=== PATIENT | male | born 1945 | race Hispanic/Latino ===

== ENCOUNTER → 2019-01-03 | Outpatient (CLI) | payer OTHER ==
[~2019-01-03] MED LIST: ALLO100T PO; AMLO10TA7 PO; CARV6.25 PO; PIOG15TA66 PO
== END | disposition home or self-care (01) ==
LOC: SHCH 14:50
PROVIDERS: ATTEND Internal Medicine Cardiovascular Disease
DX: I25.10 Atherosclerotic heart disease of native coronary artery without angina pectoris (principal)
CPT/HCPCS: 93306

== ENCOUNTER 2019-01-30 06:43 | Inpatient (IN) | payer OTHER ==
[2019-01-24 10:57] LABS: BASOPHILS % (AUTO) 0.4 % (0.0-5.0); EOSINOPHILS % (AUTO) 0.7 % (0.0-8.0); HEMATOCRIT 44.3 % (42-54); LYMPHOCYTES % (AUTO) 13.3 % (21.0-51.0); MEAN CORPUSCULAR HEMOGLOBIN 31.5 pg (27.0-33.0); MEAN CORPUSCULAR HGB CONC 33.8 g/dL (32.0-36.0); MEAN CORPUSCULAR VOLUME 93.1 fL (79-99); MONOCYTES % (AUTO) 7.9 % (3.0-13.0); NEUTROPHILS % (AUTO) 77.7 % (40.0-77.0); PLATELET COUNT (AUTO) 197 K/uL (130-400); RED BLOOD CELL COUNT(AUTO) 4.76 MIL/uL (4.50-6.20); RED CELL DISTRIBUTION WIDTH 15.6 % (11.0-15.5); WHITE BLOOD COUNT (AUTO) 8.1 K/uL (4.8-10.8)
[2019-01-24 10:58] LABS: CREATININE 2.9 mg/dL (0.5-1.5); POTASSIUM 4.2 mmol/L (3.5-5.1)
[2019-01-24 11:06] VITALS: BP 137/75
[2019-01-24 11:31] LABS: INR 1.5 (0.85-1.15); PARTIAL THROMBOPLASTIN TIME 36.4 SEC (26.3-35.5); PROTHROMBIN TIME 15.6 SEC (9.6-11.6)
--- NOTE | 2019-01-28 11:20 | NUR ---
ABNORMAL LAB / H&P: CALLED DR. BUCKLEY'S OFFICE AND SPOKE TO [place] REGARDING NO H&P , WILL FAX TO [phone]. ALSO NOTIFIED CLIFTON OF ABNORMAL PT, INR, PTT, BUN AND CREATINE, FAXED TO OFFICE OF DR. BUCKLEY. CLIFTON TO SHOW DR. BUCKLEY LAB RESULTS AND WILL FAX ORDERS IF GIVEN.
--- NOTE | 2019-01-28 11:31 | NUR ---
CONSULT: DR. SOMMERS VIEWED PT 15.6, INR 1.50, PTT 36.4, INSTRUCTED TO NOTIFY DR. BUCKLEY. MADE AWARE OF LAB ALREADY FAXED TO OFFICE AND AWAITING ORDERS. VIEWED BUN 69 AND CREATINE OF 2.9, ORDERED TO OBTAIN LAST LAB DONE TO VIEW. DR. CAMPOS'S OFFICE CALLED AND WILL BE FAXED TO [phone].
--- NOTE | 2019-01-28 11:42 | NUR ---
CONSULT: MASOUD DYER CRNA MADE AWARE OF ORDERS FROM DR. SOMMERS ON ABNORMAL BUN AND CREAT. MADE AWARE OF BUN 69 AND CREATINE 2.9 FROM 01/24/19. MADE AWARE OF BUN 66 AND CREATNE 2.3 FROM 12/09/18. MASOUD DYER CRNA MADE AWARE THAT PATIENT HAS BEEN CLEARED BY BLOCK INSPECTOR AND ELECTRICAL INSPECTOR. ALSO THAT PATIENT HAS BEEN HAVING INCREASING CREATINE / GFR, BEING FOLLOWED BY NEPHROLOGY PER H&P OF DR. GUS CAMPOS, NO ORDERS GIVEN, OK TO PROCEED WITH SURGERY.
[~2019-01-30] VITALS: Ht 172.7 cm; Wt 106.9 kg
[2019-01-30] VITALS (21 sets, daily range): BP systolic 107–157; BP diastolic 55–96
[~2019-01-30 06:43] MED LIST changes: -ALLO100T PO; -AMLO10TA7 PO; +ATOR40TA71 PO; +RIVA15TA PO; +VITA1CAP85 PO; +[UNRECOGNIZED DRUG - OTHER] PO
[2019-01-30] MEDS ORDERED: SODIUM CHLORIDE 0.9% 1000ML 1,000 ML IV ONE (07:24)
[2019-01-30] MEDS ORDERED: PROPOFOL 10 MG/ML 20ML VIAL IV ONE (07:29)
[2019-01-30] MEDS ORDERED: ROCURONIUM 10MG/1ML SYR 10 MG/ML ML ONE ×2 (07:29→09:17)
[2019-01-30] MEDS ORDERED: ONDANSETRON HCL 4 MG/2 ML VIAL ONE (07:29)
[2019-01-30] MEDS ORDERED: LIDOCAINE PF 2% 5ML ABBOJECT ONE (07:29)
[2019-01-30] MEDS ORDERED: MIDAZOLAM HCL 1 MG/ML 2ML VIAL ONE (07:30)
[2019-01-30] MEDS ORDERED: FENTANYL CITRATE PF 50 MCG/1 ML 2ML VIAL ONE (07:30)
--- NOTE | 2019-01-30 07:30 | NUR ---
PREP nasal swabbed with betadine swabs bilateral nares right knee clipped and wiped with Binh wipes by Kenneth Hollis
--- NOTE | 2019-01-30 07:30 | NUR ---
ABNORMAL LABS INR 1.5 Dr Gayle aware no new orders
[2019-01-30] MEDS ORDERED: ROPIVACAINE 0.5% 5MG/ML 30ML IJ ONE (07:34)
[2019-01-30] MEDS: CEFAZOLIN SODIUM 1 GM VIAL ONE ×2 (08:01→09:00)
[2019-01-30] MEDS ORDERED: VANCOMYCIN HCL 1 GM VIAL ONE ×3 (09:13→10:26)
[2019-01-30] MEDS ORDERED: TRANEXAMIC ACID 1000MG/10ML IV ONE (09:27)
[2019-01-30] MEDS ORDERED: GLYCOPYRROLATE 1 MG/5 ML SYRINGE ONE (10:58)
[2019-01-30] MEDS ORDERED: NEOSTIGMINE 5MG/5ML SYR IV ONE (10:59)
[2019-01-30] MEDS ORDERED: EPHEDRINE SULFATE 50 MG/ML AMPULE ONE (11:11)
[2019-01-30] MEDS ORDERED: FERROUS FUMARATE 324 MG TABLET PO PRN (11:15)
[2019-01-30] MEDS ORDERED: ONDANSETRON HCL 4 MG/2 ML VIAL IVP PRN (11:15)
[2019-01-30] MEDS: ACETAMINOPHEN EXTRA STRENGTH 500 MG TABLET PO SCH ×2 (11:15→20:26)
[2019-01-30] MEDS: FAMOTIDINE 20MG TAB 20 MG TAB PO SCH (11:25)
[2019-01-30] MEDS ORDERED: MEPERIDINE-PF 25 MG/ML SYG ONE ×2 (11:32→11:41)
--- NOTE | 2019-01-30 12:28 | NUR ---
POST SURGERY PATIENT RECEIVED FROM PACU VIA HOSPITAL BED. HE APPEARS VERY SLEEPY, AROUSED BY RAISING MY VOICE. HE IS ON OXYGEN AT 2L/MIN VIA NASAL CANNULA. IV IS PATENT INFUSING FLUIDS WITH NO REDNESS OR SWELLING NOTED TO SITE. BOTH HAVE BEEN ORIENTED TO ROOM AND USE OF CALL LIGHT. BED IS IN LOWEST POSITION AND LOCKED. POST OP V/S HAVE BEEN INITIATED. DRESSING TO RIGHT KNEE IS DRY AND INTACT. WILL CONTINUE TO MONITOR.
--- NOTE | 2019-01-30 14:47 | NUR ---
1435-PATIENT PREFERS TO BE SEEN TOMORROW FOR PHYSICAL THERAPY EVALUATION.PATIENT IS VERY DROWSY.NOTIFIED DENIZ HOLLOWAY REGARDING PATIENT'S PREFERENCES. Addendum: 01/30/19 at 1450 by CORINNA STEIN, PT PT Amended: Links added.
[2019-01-30] MEDS: OXYCODONE HCL 5 MG TAB PO PRN ×2 (15:42→20:31)
[2019-01-30] MEDS: SODIUM CHLORIDE 0.9% 1000ML 1,000 ML IV SCH ×2 (16:19→21:01)
[2019-01-30] MEDS: CEFAZOLIN 3GM /D5W 100ML 100 ML IV SCH (17:03)
[2019-01-30] MEDS: PREGABALIN 25 MG CAP PO SCH (20:25)
[2019-01-30] MEDS: PIOGLITAZONE HCL 15 MG TAB PO SCH (20:25)
[2019-01-30] MEDS: HYDROCHLOROTHIAZIDE 25 MG TABLET PO SCH (20:27)
[2019-01-30] MEDS: CARVEDILOL 6.25 MG TABLET PO SCH (20:27)
[2019-01-30] MEDS: RIVAROXABAN 15 MG TABLET PO SCH (20:31)
[2019-01-31] MEDS: CEFAZOLIN 3GM /D5W 100ML 100 ML IV SCH (00:08)
[2019-01-31] MEDS: SODIUM CHLORIDE 0.9% 1000ML 1,000 ML IV SCH (03:33)
[2019-01-31] MEDS: ACETAMINOPHEN EXTRA STRENGTH 500 MG TABLET PO SCH ×3 (03:38→20:37)
[2019-01-31 04:00] VITALS: BP 136/87
[2019-01-31 04:06] LABS: HEMATOCRIT 36.4 % (42-54); MEAN CORPUSCULAR HEMOGLOBIN 32.6 pg (27.0-33.0); MEAN CORPUSCULAR HGB CONC 35.2 g/dL (32.0-36.0); MEAN CORPUSCULAR VOLUME 92.5 fL (79-99); PLATELET COUNT (AUTO) 179 K/uL (130-400); RED BLOOD CELL COUNT(AUTO) 3.94 MIL/uL (4.50-6.20); RED CELL DISTRIBUTION WIDTH 15.4 % (11.0-15.5); WHITE BLOOD COUNT (AUTO) 10.9 K/uL (4.8-10.8)
[2019-01-31 04:14] LABS: CREATININE 2.8 mg/dL (0.5-1.5); POTASSIUM 4.2 mmol/L (3.5-5.1)
[2019-01-31 08:00] VITALS: BP 131/82
[2019-01-31] MEDS: OXYCODONE HCL 5 MG TAB PO PRN ×3 (08:31→17:26)
[2019-01-31] MEDS: TAMSULOSIN HCL 0.4 MG CAP.ER.24H PO SCH (08:31)
[2019-01-31] MEDS: RIVAROXABAN 15 MG TABLET PO SCH (08:31)
[2019-01-31] MEDS: CALCIUM CARBONATE 500 MG TABLET PO PRN ×2 (08:31→23:48)
[2019-01-31] MEDS: FAMOTIDINE 20MG TAB 20 MG TAB PO SCH (08:31)
[2019-01-31] MEDS: PREGABALIN 25 MG CAP PO SCH ×2 (08:31→20:36)
[2019-01-31] MEDS: HYDROCHLOROTHIAZIDE 25 MG TABLET PO SCH (08:31)
[2019-01-31] MEDS: POLYETHYLENE GLYCOL 3350 17 GM POWD.PACK PO SCH (08:32)
[2019-01-31] MEDS: CARVEDILOL 6.25 MG TABLET PO SCH (08:32)
[2019-01-31 11:00] VITALS: BP 115/64
[2019-01-31] MEDS ORDERED: DEXTROSE 50%-WATER 50 ML DISP.SYRIN IV PRN (12:30)
[2019-01-31] MEDS ORDERED: CARVEDILOL 12.5 MG TABLET PO PRN (12:30)
[2019-01-31] MEDS ORDERED: GLUCAGON 1MG KIT 1 MG ML IM PRN (12:30)
[2019-01-31 16:00] VITALS: BP 108/71
--- NOTE | 2019-01-31 16:03 | NUR ---
CM Note: Approved and has acceptance for [facility] Spoke to Laevrn w/[facility], stated Dr Gayle's office set up the HH for PT and Skilled Nurse visit. Pt has approval and acceptance. Requested to have primary nurse give report once pt ready to DC. Primary nurse aware. CM to cont to follow up.
[2019-01-31] MEDS: INSULIN HUMULIN R 100 UNIT/ML 3ML SQ SCH ×2 (16:30→20:33)
[2019-01-31 19:52] VITALS: BP 120/72
[2019-01-31] MEDS: PIOGLITAZONE HCL 15 MG TAB PO SCH (20:36)
[2019-01-31 23:49] VITALS: BP 102/60
[2019-02-01] MEDS: OXYCODONE HCL 5 MG TAB PO PRN ×2 (01:24→07:47)
[2019-02-01 04:00] VITALS: BP 127/84
[2019-02-01] MEDS: ACETAMINOPHEN EXTRA STRENGTH 500 MG TABLET PO SCH ×2 (04:01→11:51)
[2019-02-01] MEDS: INSULIN HUMULIN R 100 UNIT/ML 3ML SQ SCH (06:51)
[2019-02-01] MEDS: FAMOTIDINE 20MG TAB 20 MG TAB PO SCH (07:46)
[2019-02-01] MEDS: TAMSULOSIN HCL 0.4 MG CAP.ER.24H PO SCH (07:46)
[2019-02-01] MEDS: PREGABALIN 25 MG CAP PO SCH (07:46)
[2019-02-01] MEDS: POLYETHYLENE GLYCOL 3350 17 GM POWD.PACK PO SCH (07:46)
[2019-02-01 07:58] VITALS: BP 98/63
[2019-02-01] MEDS: RIVAROXABAN 15 MG TABLET PO SCH (09:45)
--- NOTE | 2019-02-01 11:51 | NUR ---
DISCHARGE DISCHARGE TEACHING DONE WITH PATIENT WITH FAMILY USING TEACHBACK METHOD, VERBALIZED UNDERSTANDING. NO NOTED SOB OR DISTRESS. DRESSING TO RIGHT KNEE CHANGED, INCISION IS DRY AND INTACT. DRESSING TEACHING DONE WITH PATIENT AND FAMILY, VERBALIZED UNDERSTANDING. IV REMOVED, CATH TIP INTACT. REPORT CALLED TO HOME HEALTH. PENDING TO BE TRANSFERRED OUT VIA PRIVATE VEHICLE.
[2019-02-02] MEDS ORDERED: BISACODYL 10 MG SUPP.RECT RC PRN (11:15)
== END 2019-02-01 12:15 | disposition home health service (06) | DRG 470 ==
LOC: DAH 06:43 → DAHIP 06:44 → DAH 06:44 → OBSVTOIN 06:44 → EDSTATUS 10:30 → 4AH 12:36
PROVIDERS: ADMIT Orthopaedic Surgery; ATTEND Orthopaedic Surgery
PROC: 0SRC0J9 Replacement of Right Knee Joint with Synthetic Substitute, Cemented, Open Approach (ICD-10-PCS; principal; 2019-01-30 09:18)
DX: M17.11 Unilateral primary osteoarthritis, right knee (principal); M21.061 Valgus deformity, not elsewhere classified, right knee; E11.9 Type 2 diabetes mellitus without complications; I48.91 Unspecified atrial fibrillation; M65.9 Synovitis and tenosynovitis, unspecified; I10 Essential (primary) hypertension; E78.00 Pure hypercholesterolemia, unspecified; M24.561 Contracture, right knee; Z96.652 Presence of left artificial knee joint; E66.01 Morbid (severe) obesity due to excess calories; Z68.35 Body mass index [BMI] 35.0-35.9, adult; Z83.3 Family history of diabetes mellitus; Z82.5 Family history of asthma and other chronic lower respiratory diseases; Z82.49 Family history of ischemic heart disease and other diseases of the circulatory system; Z82.3 Family history of stroke; Z82.0 Family history of epilepsy and other diseases of the nervous system; I95.81 Postprocedural hypotension
CPT/HCPCS: 36415; 80048; 82948; 85025; 85027; 85610; 85730; 86850; 86900; 86901; 87070; 87076; 87205; 87641; 88304; 88311; 97039; A4218; C1713; G0378; J0690; J2001; J2175; J2250; J2405; J2704; J2710; J2795; J3010; J3370; J3490; J7030

== ENCOUNTER → 2020-02-16 | Outpatient (CLI) | payer OTHER | END | disposition home or self-care (01) | LOC: SHCH 11:02 | PROVIDERS: ATTEND Internal Medicine Cardiovascular Disease | DX: I07.1 Rheumatic tricuspid insufficiency (principal); I25.119 Atherosclerotic heart disease of native coronary artery with unspecified angina pectoris | CPT/HCPCS: 93306; 93356 ==

== ENCOUNTER → 2020-02-19 | Outpatient (CLI) | payer OTHER ==
[~2020-02-19] MED LIST changes: +REGADENOSON 0.4 MG/5 ML PF SYG IVP SCH
== END | disposition home or self-care (01) ==
LOC: SHCH 07:55
PROVIDERS: ATTEND Internal Medicine Cardiovascular Disease
DX: I25.110 Atherosclerotic heart disease of native coronary artery with unstable angina pectoris (principal)
CPT/HCPCS: 78452; 93017; 96374; A9500 ×2; J2785

== ENCOUNTER 2022-04-05 07:19 | Inpatient (IN) | payer OTHER ==
[~2022-04-05] VITALS: Ht 162.6 cm; Wt 93.4 kg
[~2022-04-05 07:19] MED LIST changes: -REGADENOSON 0.4 MG/5 ML PF SYG IVP SCH
[2022-04-05 07:42] LABS: BASOPHILS % (AUTO) 0.6 % (0.0-5.0); HEMATOCRIT 34.9 % (42-54); LYMPHOCYTES % (AUTO) 19.4 % (21.0-51.0); MEAN CORPUSCULAR HEMOGLOBIN 29.5 pg (27.0-33.0); MEAN CORPUSCULAR HGB CONC 33.5 g/dL (32.0-36.0); MEAN CORPUSCULAR VOLUME 88.1 fL (79-99); MONOCYTES % (AUTO) 11.1 % (3.0-13.0); NEUTROPHILS % (AUTO) 66.7 % (40.0-77.0); PLATELET COUNT (AUTO) 144 K/uL (130-400); RED BLOOD CELL COUNT(AUTO) 3.96 MIL/uL (4.50-6.20); RED CELL DISTRIBUTION WIDTH 15.9 % (11.0-15.5); WHITE BLOOD COUNT (AUTO) 5.4 K/uL (4.8-10.8)
[2022-04-05 08:03] LABS: INR 1.44 (0.85-1.15); PROTHROMBIN TIME 15.4 SEC (9.6-11.6)
[2022-04-05 08:06] LABS: ALBUMIN 2.6 g/dL (3.5-5.0); BILIRUBIN,TOTAL 0.7 mg/dL (0.2-1.0); CREATININE 4.3 mg/dL (0.5-1.5); POTASSIUM 3.9 mmol/L (3.5-5.1); TOTAL PROTEIN, SERUM 6.5 g/dL (6.0-8.3)
[2022-04-05 09:08] LABS: APPEARANCE,URINE CLEAR (CLEAR); BILIRUBIN,URINE NEGATIVE (NEGATIVE); COLOR,URINE YELLOW (YELLOW); GLUCOSE, URINE (UA) NEGATIVE (NEGATIVE); KETONES,URINE NEGATIVE (NEGATIVE); LEUKOCYTE ESTERASE ,URINE NEGATIVE (NEGATIVE); NITRATE,URINE NEGATIVE (NEGATIVE); OCCULT BLOOD,URINE TRACE-INTACT (NEGATIVE); PH,URINE 5.5 (5.0-8.0); PROTEIN,URINE >=300 mg/dL (NEGATIVE); UROBILINOGEN,URINE 0.2 mg/dL (0.2-1.0)
[2022-04-05] MEDS ORDERED: ONDANSETRON 4MG INJ IVP PRN (09:30)
[2022-04-05] MEDS ORDERED: KAYEXALATE 15GM/60ML PO PRN (09:30)
[2022-04-05] MEDS ORDERED: LACTULOSE 20 GM/30 ML UDCUP PO PRN (09:30)
[2022-04-05] MEDS ORDERED: DOCUSATE SODIUM 100 MG CAP PO PRN (09:30)
[2022-04-05] MEDS ORDERED: ACETAMINOPHEN 650 MG SUPPOSITORY RC PRN (09:30)
[2022-04-05] MEDS ORDERED: ACETAMINOPHEN 325 MG TAB PO PRN (09:30)
[2022-04-05 09:56] LABS: BACTERIA,URINE Rare /HPF (None Seen); MUCUS,URINE Few LPF (None Seen); RBC,URINE 0-1 /HPF (0-1); SQUAMOUS EPITHELIAL CELL,UR Rare /HPF (0-2); WBC,URINE 0-1 /HPF (0-1)
[2022-04-05] MEDS ORDERED: 0.9%NACL 1000ML 1,000 ML IV SCH (10:00)
[2022-04-05] MEDS: CLONIDINE HCL 0.1 MG TABLET PO PRN (10:00)
[2022-04-05] MEDS: INSULIN HUMULIN R 100 UNIT/ML 3ML SQ SCH ×3 (11:30→21:00)
[2022-04-05 11:35] LABS: PROTEIN,URINE RANDOM 148.9 mg/dL (0-11.9)
[2022-04-05] MEDS: METOCLOPRAMIDE 5 MG TABLET PO SCH ×3 (12:10→21:00)
[2022-04-05] MEDS ORDERED: AMLODIPINE 5 MG TAB ONE (12:12)
[2022-04-05] MEDS ORDERED: CARV25TA PO (12:33)
[2022-04-05] MEDS ORDERED: APIX5TAB PO (12:33)
[2022-04-05] MEDS ORDERED: FOLATE PO (12:33)
[2022-04-05] MEDS ORDERED: VIT B12 PO (12:33)
[2022-04-05] MEDS ORDERED: VIT D3 PO (12:33)
[2022-04-05] MEDS ORDERED: CARVEDILOL 12.5 MG TABLET PO SCH (14:30)
[2022-04-05] MEDS ORDERED: CLONIDINE 0.1 MG/ 24 HR PATCH TD SCH (14:30)
[2022-04-05] MEDS: FOLIC ACID 1 MG TABLET PO SCH (14:58)
[2022-04-05] MEDS: CYANOCOBALAMIN (VITAMIN B-12) 1,000 MCG TABLET PO SCH (14:59)
[2022-04-05] MEDS: CARVEDILOL 25 MG TABLET PO SCH (21:00)
[2022-04-05] MEDS: ATORVASTATIN 40 MG TABLET PO SCH (21:00)
[2022-04-05 22:30] VITALS: BP 158/90
[2022-04-06] VITALS (7 sets, daily range): BP systolic 136–184; BP diastolic 85–102
[2022-04-06 04:16] LABS: BASOPHILS % (AUTO) 0.7 % (0.0-5.0); EOSINOPHILS % (AUTO) 2.8 % (0.0-8.0); HEMATOCRIT 31.3 % (42-54); LYMPHOCYTES % (AUTO) 23.5 % (21.0-51.0); MEAN CORPUSCULAR HEMOGLOBIN 29.9 pg (27.0-33.0); MEAN CORPUSCULAR HGB CONC 33.9 g/dL (32.0-36.0); MEAN CORPUSCULAR VOLUME 88.2 fL (79-99); MONOCYTES % (AUTO) 12.4 % (3.0-13.0); NEUTROPHILS % (AUTO) 60.2 % (40.0-77.0); PLATELET COUNT (AUTO) 126 K/uL (130-400); RED BLOOD CELL COUNT(AUTO) 3.55 MIL/uL (4.50-6.20); RED CELL DISTRIBUTION WIDTH 15.8 % (11.0-15.5); WHITE BLOOD COUNT (AUTO) 4.6 K/uL (4.8-10.8)
[2022-04-06 04:21] LABS: % IRON SATURATION 27.6 % (30-44); CREATININE 4.1 mg/dL (0.5-1.5); PHOSPHORUS 4.4 mg/dL (2.5-4.9); POTASSIUM 3.9 mmol/L (3.5-5.1)
[2022-04-06 04:40] LABS: B-TYPE NATRIURETIC PEPTIDE 557 pg/mL (0-100)
[2022-04-06] MEDS: METOCLOPRAMIDE 5 MG TABLET PO SCH ×4 (07:27→20:41)
[2022-04-06] MEDS: INSULIN HUMULIN R 100 UNIT/ML 3ML SQ SCH ×4 (07:28→21:00)
[2022-04-06] MEDS: AMLODIPINE 5 MG TAB PO SCH (08:45)
[2022-04-06] MEDS: CYANOCOBALAMIN (VITAMIN B-12) 1,000 MCG TABLET PO SCH (08:45)
[2022-04-06] MEDS: FOLIC ACID 1 MG TABLET PO SCH (08:45)
[2022-04-06] MEDS: PANTOPRAZOLE 40 MG TAB DR PO SCH (08:45)
[2022-04-06] MEDS: CARVEDILOL 25 MG TABLET PO SCH ×2 (08:46→20:39)
[2022-04-06] MEDS: ENOXAPARIN SODIUM 30 MG/0.3 ML SQ SCH (08:53)
[2022-04-06] MEDS: VIT D3 125 MCG PO SCH (09:00)
[2022-04-06] MEDS ORDERED: HYDRALAZINE 25MG TABLET ONE (12:14)
[2022-04-06] MEDS ORDERED: HYDRALAZINE 25MG TABLET PO PRN (12:30)
[2022-04-06] MEDS: ATORVASTATIN 40 MG TABLET PO SCH (20:27)
[2022-04-06] MEDS: HYDRALAZINE HCL 10 MG TABLET PO SCH (20:28)
[2022-04-07 00:25] VITALS: BP 167/88
[2022-04-07] MEDS: CLONIDINE HCL 0.1 MG TABLET PO PRN (00:43)
[2022-04-07 04:41] VITALS: BP 169/90
[2022-04-07 05:28] LABS: BASOPHILS % (AUTO) 0.4 % (0.0-5.0); EOSINOPHILS % (AUTO) 2.7 % (0.0-8.0); HEMATOCRIT 32.9 % (42-54); LYMPHOCYTES % (AUTO) 20.9 % (21.0-51.0); MEAN CORPUSCULAR HGB CONC 32.5 g/dL (32.0-36.0); MEAN CORPUSCULAR VOLUME 89.2 fL (79-99); MONOCYTES % (AUTO) 12.5 % (3.0-13.0); NEUTROPHILS % (AUTO) 63.3 % (40.0-77.0); PLATELET COUNT (AUTO) 135 K/uL (130-400); RED BLOOD CELL COUNT(AUTO) 3.69 MIL/uL (4.50-6.20); RED CELL DISTRIBUTION WIDTH 15.9 % (11.0-15.5); WHITE BLOOD COUNT (AUTO) 5.2 K/uL (4.8-10.8)
[2022-04-07 05:43] LABS: ALBUMIN 2.2 g/dL (3.5-5.0); BILIRUBIN,TOTAL 0.7 mg/dL (0.2-1.0); PHOSPHORUS 4.2 mg/dL (2.5-4.9); POTASSIUM 3.8 mmol/L (3.5-5.1); TOTAL PROTEIN, SERUM 5.5 g/dL (6.0-8.3)
[2022-04-07] MEDS: METOCLOPRAMIDE 5 MG TABLET PO SCH (05:45)
[2022-04-07 06:00] LABS: INR 1.43 (0.85-1.15); PROTHROMBIN TIME 15.3 SEC (9.6-11.6)
[2022-04-07 06:01] LABS: PARTIAL THROMBOPLASTIN TIME 34.7 SEC (26.3-35.5)
[2022-04-07] MEDS: INSULIN HUMULIN R 100 UNIT/ML 3ML SQ SCH (06:57)
[2022-04-07 08:00] VITALS: BP 118/56
[2022-04-07] MEDS: VIT D3 125 MCG PO SCH (09:00)
[2022-04-07] MEDS: ENOXAPARIN SODIUM 30 MG/0.3 ML SQ SCH (09:00)
[2022-04-07] MEDS: HYDRALAZINE HCL 10 MG TABLET PO SCH (09:27)
[2022-04-07] MEDS: FOLIC ACID 1 MG TABLET PO SCH (09:27)
[2022-04-07] MEDS: AMLODIPINE 5 MG TAB PO SCH (09:27)
[2022-04-07] MEDS: PANTOPRAZOLE 40 MG TAB DR PO SCH (09:27)
[2022-04-07] MEDS: CYANOCOBALAMIN (VITAMIN B-12) 1,000 MCG TABLET PO SCH (09:27)
[2022-04-07 09:28] VITALS: BP 118/56
[2022-04-07] MEDS: CARVEDILOL 25 MG TABLET PO SCH (09:28)
[2022-04-07] MEDS ORDERED: PANT40TA PO (09:48)
[2022-04-07] MEDS ORDERED: AMLO5TAB4 PO (09:48)
[2022-04-07] MEDS ORDERED: METO5TAB2 PO (09:48)
[2022-04-07] MEDS ORDERED: HYDR-3420 PO (09:48)
== END 2022-04-07 10:30 | disposition home or self-care (01) | DRG 684 ==
LOC: EDH 07:19 → EDHIP 09:07 → 4BH 19:39
PROVIDERS: ADMIT Internal Medicine Critical Care Medicine; ATTEND Internal Medicine Critical Care Medicine
DX: N17.9 Acute kidney failure, unspecified (principal); N18.9 Chronic kidney disease, unspecified; I12.9 Hypertensive chronic kidney disease with stage 1 through stage 4 chronic kidney disease, or unspecified chronic kidney disease; E78.5 Hyperlipidemia, unspecified; E11.22 Type 2 diabetes mellitus with diabetic chronic kidney disease; I25.10 Atherosclerotic heart disease of native coronary artery without angina pectoris; Z96.653 Presence of artificial knee joint, bilateral; D64.9 Anemia, unspecified; Z20.822 Contact with and (suspected) exposure to COVID-19; E78.00 Pure hypercholesterolemia, unspecified; E66.9 Obesity, unspecified; Z68.35 Body mass index [BMI] 35.0-35.9, adult
CPT/HCPCS: 36415; 71045; 76770; 80048; 80053; 81001; 82570; 82948; 83540; 83550; 83735; 83880; 84100; 84156; 84165; 85025; 85610; 85730; 86160; 86255; 87635; 93306; 93356; 93975; 99291; C9803; G0378; J1650; J7030

== ENCOUNTER → 2022-04-20 | Outpatient (CLI) | payer OTHER ==
[~2022-04-20] MED LIST changes: +AMLO5TAB4 PO; +APIX5TAB PO; +CARV25TA PO; -CARV6.25 PO; +FOLATE PO; +HYDR-3420 PO; +METO5TAB2 PO; +PANT40TA PO; -RIVA15TA PO; +VIT B12 PO; +VIT D3 PO; -VITA1CAP85 PO; -[UNRECOGNIZED DRUG - OTHER] PO
== END | disposition home or self-care (01) ==
LOC: RAH 13:21
PROVIDERS: ATTEND Internal Medicine
DX: E04.2 Nontoxic multinodular goiter (principal)
CPT/HCPCS: 76536

== ENCOUNTER → 2022-05-31 | Outpatient (CLI) | payer OTHER ==
[~2022-05-31] MED LIST changes: +LIDOCAINE HCL 1% 20 ML VIAL ONE
[2022-05-31 11:05] LABS: INR 1.33 (0.85-1.15); PROTHROMBIN TIME 14.3 SEC (9.6-11.6)
[2022-05-31 11:06] LABS: PARTIAL THROMBOPLASTIN TIME 31.1 SEC (26.3-35.5)
== END | disposition home or self-care (01) ==
LOC: RAH 09:42
PROVIDERS: ATTEND Internal Medicine
DX: E04.2 Nontoxic multinodular goiter (principal); E03.9 Hypothyroidism, unspecified; Z79.01 Long term (current) use of anticoagulants; Z79.899 Other long term (current) drug therapy
CPT/HCPCS: 10005; 36415; 76942; 85610; 85730